=== PATIENT | male | born 1935 | race Caucasian/White ===

== ENCOUNTER → 2018-10-15 | Outpatient (CLI) | payer MEDICARE, OTHER ==
[~2018-10-15] MED LIST: ACETAMINOPHEN325 M1 PO; ASPIRIN EC81 M1 PO; CARDIZEM CD120 MG PO; CARDURA4 MG PO; CARVEDILOL3.125 MG PO; FINASTERIDE5 MG PO; FISH OIL 1,0001 EAC7; LIPITOR 40 MG T40 M1 PO; MICARDIS HCT 81 EAC1 PO; MULTIVITAMINS1 EAC7 PO; OXYCODON-ACETA1 EAC1 PO; VITAMIN D1000 UNI1 PO
[2018-10-15 11:38] LABS: CALCIUM 9.1 mg/dL (8.5-10.1); CREATININE 1.5 mg/dL (0.6-1.3)
--- NOTE | 2018-10-15 14:29 | EKG ---
[place] [address] ELECTROCARDIOGRAM REPORT Name: JAQUELINE STEWART Room: [facility]#: [id number] Admission: 10/15/18 Attend Phys: Dorothy Mauricio MD Discharge: Date of : 33 Report #: [id number] THIS REPORT FOR: //name// [facility] Test Date: 2018-10-15 Test Time: 11:42:38 Pat Name: JAQUELINE STEWART Department: Room: Gender: M Molder Operator: : [id number] Requested By: Dorothy Mauricio Order Number: [id number] Reading MD: Nj Meier Measurements Intervals [place] Rate: 63 P: 48 ME: 220 QRS: 4 QRSD: 120 T: 5 QT: 422 QTc: 433 Interpretive Statements Sinus rhythm Prolonged ME interval Probable left atrial enlargement LVH with secondary repolarization abnormality Compared to ECG 07/16/2012 11:27:55 First degree AV block now present Left ventricular hypertrophy now present Early repolarization now present Electronically Signed On 10-15-2018 14:29:13 CDT by Nj Meier [email or web address] <ELECTRONICALLY SIGNED> By: Nj Meier MD, [facility] 10/15/18 1429 1142 1142 Nj Meier MD, [facility] /EPI
== END ==
LOC: M.LAB 10:50
PROVIDERS: Anesthesiology
DX: Z01.818 Encounter for other preprocedural examination (principal); I51.7 Cardiomegaly